=== PATIENT | female | born 1980 | race Caucasian/White ===

== ENCOUNTER 2017-08-10 11:32 | Emergency (ER) | payer BC, MEDICAID ==
[2017-08-10 11:53] VITALS: BP 119/78
--- NOTE | 2017-08-10 11:56 | EDM.PDOC ---
ED HPI GENERAL MEDICAL PROBLEM - General Chief Complaint: GASOLINE DRAGLINE OPERATOR Problem Stated Complaint: SPOTTING AND CRAMPING WITH Time Seen by Provider: 08/10/17 11:45 Source of Information: Reports: Patient History Limitations: Reports: No Limitations - History of Present Illness INITIAL COMMENTS - FREE TEXT/NARRATIVE: HISTORY AND PHYSICAL: History of present illness: Patient is a 36 ear old female who presents to the emergency room today with complaints of abdominal cramping and vaginal bleeding since 5 AM this morning. She is approximately 12 weeks with her last menstrual period being May 17, 2017. Reports that this morning at 5 AM she noticed some pelvic cramping, went to the bathroom approximately an hour later and noticed some spotting on the toilet paper tissue. Denies any chest pain, shortness of breath , nausea, vomiting, diarrhea, fever or chills. Reports she has had regular bowel movements. Denies any dysuria. Denies any recent sexual activity in the last couple days. : 9, para: 5 Dr. Grayson is her primary GASOLINE DRAGLINE OPERATOR. She has had a confirmed IUP. Review of systems: As per history of present illness and below otherwise all systems reviewed and negative. Past medical history: As per history of present illness and as reviewed below otherwise noncontributory. Surgical history: As per history of present illness and as reviewed below otherwise noncontributory. Social history: No reported history of drug or alcohol abuse. Family history: As per history of present illness and as reviewed below otherwise noncontributory. Physical exam: Gen.: Tamika is a 36-year-old female, nontoxic-appearing, well-developed and well-nourished, alert and oriented. Appears to be in no acute distress. HEENT: Atraumatic, normocephalic, pupils reactive, negative for conjunctival pallor or scleral icterus, mucous membranes moist, throat clear, neck supple, nontender, trachea midline. Lungs: Clear to auscultation, breath sounds equal bilaterally, chest nontender. Heart: S1S2, regular rate and rhythm. Abdomen: Soft, nondistended, nontender. Negative for masses or hepatosplenomegaly. Negative for costovertebral tenderness. Pelvis: Stable nontender. Genitourinary: Deferred. Rectal: Deferred. Extremities: Atraumatic, negative for cords or calf pain. Neurovascular unremarkable. Neuro: Awake, alert, oriented. Cranial nerves II through XII unremarkable. Cerebellum unremarkable. Motor and sensory unremarkable throughout. Exam nonfocal. Offered patient some pain/nausea medication. She states she is comfortable at this time and declines. She is aware of the labs and ultrasound that will take place, she is agreeable. Vital signs are stable. Ultrasound shows a single IUP measuring 12 weeks and 2 days. Very small subchorionic hemorrhage. We discussed strict pelvic rest and diligent follow-up with her GASOLINE DRAGLINE OPERATOR. Patient voices understanding and is agreeable to plan of care. I will treat her UTI with Augmentin 500 mg 1 tab twice a day 10 days. Diagnostics: CBC, CMP, AB/SIMON, OB ultrasound Therapeutics: [] Impression: Threatened miscarriage Plan: 1. Strict pelvic rest until cleared by her GASOLINE DRAGLINE OPERATOR. 2. May use Tylenol for pain management. 3. Please take Augmentin 1 tab twice a day 10 days for UTI. Drink plenty of fluids. Urine culture was added onto her urine today. If you receive a call from the hospital it's to change the antibiotic based on those culture results. 4. Follow-up with your GASOLINE DRAGLINE OPERATOR in the next 1-2 days. Return to the ED as needed and as discussed. Definitive disposition and diagnosis as appropriate pending reevaluation and review of above. Onset: Today Duration: Hour(s): Location: Reports: Abdomen - Related Data Allergies Allergy/AdvReac Type Severity Reaction Status Date / Time acetaminophen [From Percocet] Allergy Jaundice Verified 08/10/17 11:44 oxycodone HCl [From Percocet] Allergy Jaundice Verified 08/10/17 11:44 Home Meds: Home Meds Vits #93/Iron Fum/FA [ Formula Tablet] 1 tab PO DAILY 08/10/17 [History] Past Medical History - Past Health History Medical/Surgical History: Denies Medical/Surgical History HEENT History: Reports: None Cardiovascular History: Reports: None Respiratory History: Reports: None Gastrointestinal History: Reports: None Genitourinary History: Reports: None GASOLINE DRAGLINE OPERATOR History: Reports: None Musculoskeletal History: Reports: None Neurological History: Reports: None Psychiatric History: Reports: None Endocrine/Metabolic History: Reports: None Hematologic History: Reports: None Immunologic History: Reports: None Oncologic (Cancer) History: Reports: None Dermatologic History: Reports: None - Infectious Disease History Infectious Disease History: Reports: None - Past Surgical History Musculoskeletal Surgical History: Reports: Shoulder Surgery Social & Family History - Family History Family Medical History: Noncontributory HEENT: Reports: None Cardiac: Reports: None Respiratory: Reports: None GI: Reports: None - Tobacco Use Smoking Status *Q: Current Every Day Smoker Years of Tobacco use: 15 Packs/Tins Daily: 0.5 Used Tobacco, but Quit: No Second Hand Smoke Exposure: No - Alcohol Use Days Per Week of Alcohol Use: 2 Number of Drinks Per Day: 2 Total Drinks Per Week: 4 - Recreational Drug Use Recreational Drug Use: No ED ROS GENERAL - Review of Systems Review Of Systems: ROS reveals no pertinent complaints other than HPI. ED EXAM - Physical Exam Exam: See Below (See dictation) Course - Vital Signs Last Recorded V/S: Last Vital Signs Temp 36.8 C 08/10/17 11:47 Pulse 105 H 08/10/17 11:47 Resp 16 08/10/17 11:47 BP 119/78 08/10/17 11:47 Pulse Ox 99 08/10/17 11:47 - Orders/Labs/Meds Orders: Active Orders 24 hr Category Date Time Status OB Ltd 1 or More Fetus [US] Stat Exams 08/10/17 11:46 Taken CULTURE URINE [RM] Stat Lab 08/10/17 13:20 Uncollected Labs: Laboratory Tests 08/10/17 08/10/17 08/10/17 Range/Units 12:10 12:10 12:10 WBC 9.25 (4.0-11.0) K/uL RBC 4.09 L (4.30-5.90) M/uL Hgb 13.9 (12.0-16.0) g/dL Hct 39.5 (36.0-46.0) % MCV 96.6 (80.0-98.0) fL MCH 34.0 H (27.0-32.0) pg MCHC 35.2 (31.0-37.0) g/dL RDW Std Deviation 46.9 (28.0-62.0) fl RDW Coeff of Maurilio 13 (11.0-15.0) % Plt Count 332 (150-400) K/uL MPV 9.20 (7.40-12.00) fL Neut % (Auto) 63.4 (48.0-80.0) % Lymph % (Auto) 24.4 (16.0-40.0) % [place] % (Auto) 7.1 (0.0-15.0) % Eos % (Auto) 4.9 (0.0-7.0) % Baso % (Auto) 0.2 (0.0-1.5) % Neut # (Auto) 5.9 H (1.4-5.7) K/uL Lymph # (Auto) 2.3 (0.6-2.4) K/uL [place] # (Auto) 0.7 (0.0-0.8) K/uL Eos # (Auto) 0.5 (0.0-0.7) K/uL Baso # (Auto) 0.0 (0.0-0.1) K/uL Nucleated RBC % 0.0 /100WBC Nucleated RBCs # 0 K/uL Sodium 135 L (136-146) mmol/L Potassium 3.7 (3.5-5.1) mmol/L Chloride 107 (98-110) mmol/L Carbon Dioxide 19 L (21-31) mmol/L BUN 6 (6.0-23.0) mg/dL Creatinine 0.6 (0.6-1.5) mg/dL Est Cr Clr Drug Dosing 118.99 mL/min Estimated GFR (MDRD) > 60.0 ml/min Glucose 107 (60-110) mg/dL Calcium 10.0 (8.8-10.8) mg/dL Total Bilirubin 0.5 (0.1-1.5) mg/dL AST 18 (5-40) IU/L ALT 25 (8-54) IU/L Alkaline Phosphatase 72 (40-150) Total Protein 7.6 (6.0-8.0) g/dL Albumin 4.1 (3.5-5.0) g/dL Globulin 3.5 (2.0-3.5) g/dL Albumin/Globulin Ratio 1.2 L (1.3-2.8) HCG, Quant 79777.0 mIU/mL Urine Color Urine Appearance Urine pH (5.0-8.0) Ur Specific [place] (1.001-1.035) Urine Protein (NEGATIVE) mg/dL Urine Glucose (UA) (NEGATIVE) mg/dL Urine Ketones (NEGATIVE) mg/dL Urine Occult Blood (NEGATIVE) Urine Nitrite (NEGATIVE) Urine Bilirubin (NEGATIVE) Urine Urobilinogen (<2.0) EU/dL Ur Leukocyte Esterase (NEGATIVE) Urine RBC (0-2/HPF) Urine WBC (0-5/HPF) Ur Epithelial Cells (NONE-FEW) Urine Bacteria (NEGATIVE) Blood Type A POSITIVE 08/10/17 Range/Units 12:38 WBC (4.0-11.0) K/uL RBC (4.30-5.90) M/uL Hgb (12.0-16.0) g/dL Hct (36.0-46.0) % MCV (80.0-98.0) fL MCH (27.0-32.0) pg MCHC (31.0-37.0) g/dL RDW Std Deviation (28.0-62.0) fl RDW Coeff of Maurilio (11.0-15.0) % Plt Count (150-400) K/uL MPV (7.40-12.00) fL Neut % (Auto) (48.0-80.0) % Lymph % (Auto) (16.0-40.0) % [place] % (Auto) (0.0-15.0) % Eos % (Auto) (0.0-7.0) % Baso % (Auto) (0.0-1.5) % Neut # (Auto) (1.4-5.7) K/uL Lymph # (Auto) (0.6-2.4) K/uL [place] # (Auto) (0.0-0.8) K/uL Eos # (Auto) (0.0-0.7) K/uL Baso # (Auto) (0.0-0.1) K/uL Nucleated RBC % /100WBC Nucleated RBCs # K/uL Sodium (136-146) mmol/L Potassium (3.5-5.1) mmol/L Chloride (98-110) mmol/L Carbon Dioxide (21-31) mmol/L BUN (6.0-23.0) mg/dL Creatinine (0.6-1.5) mg/dL Est Cr Clr Drug Dosing mL/min Estimated GFR (MDRD) ml/min Glucose (60-110) mg/dL Calcium (8.8-10.8) mg/dL Total Bilirubin (0.1-1.5) mg/dL AST (5-40) IU/L ALT (8-54) IU/L Alkaline Phosphatase (40-150) Total Protein (6.0-8.0) g/dL Albumin (3.5-5.0) g/dL Globulin (2.0-3.5) g/dL Albumin/Globulin Ratio (1.3-2.8) HCG, Quant mIU/mL Urine Color YELLOW Urine Appearance CLEAR Urine pH 6.0 (5.0-8.0) Ur Specific [place] <= 1.005 (1.001-1.035) Urine Protein NEGATIVE (NEGATIVE) mg/dL Urine Glucose (UA) NEGATIVE (NEGATIVE) mg/dL Urine Ketones NEGATIVE (NEGATIVE) mg/dL Urine Occult Blood LARGE H (NEGATIVE) Urine Nitrite NEGATIVE (NEGATIVE) Urine Bilirubin NEGATIVE (NEGATIVE) Urine Urobilinogen 0.2 (<2.0) EU/dL Ur Leukocyte Esterase SMALL (NEGATIVE) Urine RBC 4-6 (0-2/HPF) Urine WBC 8-10 (0-5/HPF) Ur Epithelial Cells FEW (NONE-FEW) Urine Bacteria FEW (NEGATIVE) Blood Type Departure - Departure Time of Disposition: 13:29 Disposition: Home, Self-Care 01 Clinical Impression: Threatened , First trimester - Discharge Information Referrals: Booker Lewis MD [Primary Care Provider] - Forms: ED Department Discharge Additional Instructions: My general discharge The following information is given to patients seen in the emergency department who are being discharged to home. This information is to outline your options for follow-up care. We provide all patients seen in our emergency department with a follow-up referral. The need for follow-up, as well as the timing and circumstances, are variable depending upon the specifics of your emergency department visit. If you don't have a primary care physician on staff, we will provide you with a referral. We always advise you to contact your personal physician following an emergency department visit to inform them of the circumstance of the visit and for follow-up with them and/or the need for any referrals to a consulting specialist. The emergency department will also refer you to a specialist when appropriate. This referral assures that you have the opportunity for follow-up care with a specialist. All of these measure are taken in an effort to provide you with optimal care, which includes your follow-up. Under all circumstances we always encourage you to contact your private physician who remains a resource for coordinating your care. When calling for follow-up care, please make the office aware that this follow-up is from your recent emergency room visit. If for any reason you are refused follow-up, please contact the [facility] Emergency Department at and asked to speak to the emergency department charge nurse. [facility] [address] [place] [id number] 1. Strict pelvic rest until cleared by her GASOLINE DRAGLINE OPERATOR. 2. May use Tylenol for pain management. 3. Please take Augmentin 1 tab twice a day 10 days for UTI. Drink plenty of fluids. Urine culture was added onto her urine today. If you receive a call from the hospital it's to change the antibiotic based on those culture results. 4. Follow-up with your GASOLINE DRAGLINE OPERATOR in the next 1-2 days. Return to the ED as needed and as discussed. - My Orders Last 24 Hours: My Active Orders 08/10/17 11:46 OB Ltd 1 or More Fetus [US] Stat 08/10/17 13:20 CULTURE URINE [RM] Stat - Assessment/Plan Last 24 Hours: My Active Orders 08/10/17 11:46 OB Ltd 1 or More Fetus [US] Stat 08/10/17 13:20 CULTURE URINE [RM] Stat
[2017-08-10 12:44] LABS: CHLORIDE,CL 107 mmol/L (98-110); SODIUM,NA 135 mmol/L (136-146)
--- NOTE | 2017-08-12 11:11 | US ---
EXAM DATE: 08/10/17 PATIENT'S AGE: 36 Patient: FAUSTO MCGOWAN Facility: [place], [place] Site . Site : [id number] Study: US OB Pelvis [id number]/10/2017 1:05:58 PM Ordering Physician: Doctor Morris Final Report: HISTORY: Spotting. Early . Clinically date 12 weeks 1 day gestation. Comparison: None. Findings: Single living intrauterine fetus with crown-rump length mean of 5.6 cm corresponding to 12 weeks 2 days gestation. heart rate 153 beats per minute. movement. Posterior right lateral placenta. Two very small hypoechoic area is along the gestational sac left lateral measuring approximately 1.0 x 0.6 cm and in the cervical os measuring approximately 0.8 x 0.5 cm. The ovaries have a normal appearance. Impression: 1. Single living intrauterine fetus measuring 12 weeks 2 days gestation with an ultrasound EDC of 02/20/2018. This correlates with clinical dating. 2 Possible very small subchorionic hemorrhage. Dictated by Carlee Grajeda MD @ Aug 10 2017 1:19PM (Electronic Signature) Report Signed by Proxy. EMERALD
== END 2017-08-10 13:40 | disposition home or self-care (01) ==
LOC: MW.ED 11:32
DX: O20.0 Threatened abortion (principal); O99.331 Smoking (tobacco) complicating pregnancy, first trimester; F17.210 Nicotine dependence, cigarettes, uncomplicated; Z3A.12 12 weeks gestation of pregnancy; Z88.6 Allergy status to analgesic agent; Z88.5 Allergy status to narcotic agent
CPT/HCPCS: 36415; 76815; 76815-26; 80053; 81001; 84702; 85025; 86900; 86901; 87086; 99284; 99284-25

== ENCOUNTER 2018-01-29 22:10 | Inpatient (IN) | payer BC, MEDICAID ==
[2018-01-30] MEDS ORDERED: Nalbuphine 10 MG/1 ML Vial IVPUSH PRN (00:41)
[2018-01-30] MEDS ORDERED: Lidocaine 1% 50 ML MDV INJECT PRN (00:41)
[2018-01-30] MEDS ORDERED: Carboprost Tromethamine 250 MCG/1 ML Amp IM PRN (00:41)
[2018-01-30] MEDS ORDERED: Sodium Chloride 0.9% 2.5 ML Syringe FLUSH PRN (00:41)
[2018-01-30] MEDS ORDERED: Methylergonovine 0.2 MG/1 ML Amp IM PRN (00:41)
[2018-01-30] MEDS ORDERED: Misoprostol 200 MCG Tab PO PRN (00:41)
[2018-01-30] MEDS ORDERED: Tranexamic Acid 1,000 MG in Sodium Chloride 0.9% 100 ML IV PRN (00:41)
[2018-01-30] MEDS ORDERED: Sodium Chloride 0.9% 10 ML Syringe FLUSH PRN (00:41)
[2018-01-30] MEDS ORDERED: Butorphanol 1 MG/ML SDV IVPUSH PRN (00:41)
[2018-01-30] MEDS ORDERED: Water For Irrigation,Sterile 1,000 ML Container IRR PRN (00:41)
[2018-01-30] MEDS ORDERED: Oxytocin/0.9 % Sodium Chloride 30 UNIT/500 ML BAG IV SCH ×2 (00:45→02:15)
[2018-01-30] MEDS ORDERED: Lactated Ringers 1,000 ML IV SCH (00:45)
[2018-01-30] MEDS ORDERED: Benzocaine/Menthol 20%-0.5% Spray 78 GM Cannister TOP PRN (07:30)
[2018-01-30] MEDS ORDERED: Aluminum Hydroxide/Magnesium Hydroxide/Simethicone Susp 30 ML Cup PO PRN (07:30)
[2018-01-30] MEDS ORDERED: Ibuprofen 400 MG Tab PO PRN (07:30)
[2018-01-30] MEDS ORDERED: Witch Hazel Medicated Pads 40/Jar TOP PRN (07:30)
[2018-01-30] MEDS ORDERED: Ondansetron 4 MG/2 ML SDV IVPUSH PRN (07:30)
[2018-01-30] MEDS ORDERED: Lanolin 100% Cream 7 GM Tube TOP PRN (07:30)
[2018-01-30] MEDS ORDERED: Acetaminophen 500 MG Tab PO PRN ×2 (07:30)
[2018-01-30] MEDS ORDERED: Ibuprofen 800 MG Tab PO PRN (07:30)
[2018-01-30] MEDS ORDERED: Bisacodyl 10 MG Supp RECTAL PRN (07:30)
[2018-01-30] MEDS ORDERED: Docusate Sodium 100 MG Cap PO PRN (07:30)
--- NOTE | 2018-01-30 09:06 | OR ---
SURGEON: Carlee Haskins M.D. DATE OF PROCEDURE: 01/30/2018 PREOP DIAGNOSES: 1. A 37-week intrauterine . 2. Spontaneous rupture of membranes. 3. Gestational diabetes, diet controlled. POSTOP DIAGNOSES: 1. A 37-week intrauterine . 2. Spontaneous rupture of membranes. 3. Gestational diabetes, diet controlled. PROCEDURE: Spontaneous vaginal delivery, intact perineum. ANESTHESIA: None. ESTIMATED BLOOD LOSS: 300 mL. FINDINGS: Viable male. score 9 at 1 minute, 9 at 5 minutes. Weight is pending. Spontaneous delivery, intact placenta, 3-vessel cord. DISPOSITION: to nursery, mom in LDRP. PROCEDURE IN DETAIL: Tamika is a 37-year-old, G9, P5, A3 at 37 weeks gestational age, who presented on the shear tender of 01/30/2018 with leakage of fluid since approximately 5 p.m. She is group B beta strep negative. She is found to be grossly ruptured. She was admitted, routine labs were drawn. IV hydration was initiated. She was found to be 2 cm, 50% effaced, -2 station. Therefore, she was monitored with no cervical change. Pitocin augmentation was initiated. She responded nicely to the labor throughout the shear tender hours. Shortly after 6 a.m., she quickly progressed from 6 cm to 8 to complete, with an urge to push. I was called for delivery. Upon my arrival, the patient was placed in modified dorsal lithotomy position. Prepped and draped in the usual aseptic manner. heart tones were in the 150s. She with the next 2 contractions was able to push to deliver 's head atraumatically, spontaneously, followed by anterior shoulder posterior shoulder, and remainder of the body without difficulty. There was a loose nuchal cord x1 reduced manually. The 's oropharynx and nares bulb suctioned. Cord clamped x2 and cut. was handed off to his mother and attending nursing staff at side. Cord arterial, cord venous, cord blood sampling was obtained. Light pressure was applied while the placenta was delivered spontaneously intact. Vigorous fundal and uterine massage then applied while 30 units Pitocin was delivered in 500 mL of IV fluid. Upon inspection of cervix, vaginal sidewalls, and perineum were found to be intact. The sponge count was correct. The patient tolerated the procedure well overall. She will remain in LDRP and infant in nursery. CHRISTEN / NATHAN /[id number]
--- NOTE | 2018-01-31 08:02 | PCM.PNPP ---
<Zulema Hernandez - Last Filed: 01/31/18 07:58> - General Info Date of Service: 01/31/18 Functional Status: Reports: Pain Controlled, Tolerating Diet, Ambulating, Urinating - Review of Systems General: Denies: Fever Pulmonary: Denies: Shortness of Breath, Pleuritic Chest Pain, Cough Cardiovascular: Denies: Chest Pain, Palpitations, Dyspnea on Exertion Gastrointestinal: Denies: Abdominal Pain Genitourinary: Denies: Dysuria - General Info Date of Service: 01/31/18 - Patient Data Vital Signs - Most Recent: Last Vital Signs Temp 36.9 C 01/30/18 19:41 Pulse 88 01/30/18 19:41 Resp 18 01/30/18 19:41 BP 116/66 01/30/18 19:41 Pulse Ox 97 01/30/18 19:41 Weight - Most Recent: 163 lb Lab Results - Last 24 Hours: Laboratory Results - last 24 hr 01/30/18 01/31/18 Range/Units 07:13 04:45 Hgb 11.2 L (12.0-16.0) g/dL Hct 33.2 L (36.0-46.0) % Cord ABG pH 7.360 (7.18-7.38) Cord ABG Base Excess -2 (-10--2) Cord VBG pH 7.401 (7.25-7.45) Cord VBG Base Excess -3 (-10--2) Med Orders - Current: Current Medications Acetaminophen (Tylenol Extra Strength) 500 mg PO Q4H PRN PRN Reason: Pain Acetaminophen (Tylenol Extra Strength) 1,000 mg PO Q4H PRN PRN Reason: Pain Al Hydroxide/Mg Hydroxide (Mag-Al Plus) 30 ml PO Q8H PRN PRN Reason: Heartburn Benzocaine/Menthol (Dermoplast Pain Relief 20%-0.5% [place]) 78 gm TOP ASDIRECTED PRN PRN Reason: Perineal Comfort Measure Bisacodyl (Dulcolax) 10 mg RECTAL .ONCE PRN PRN Reason: Constipation Carboprost Tromethamine (Hemabate Ds) 250 mcg IM ASDIRECTED PRN PRN Reason: Post Hemorrhage Docusate Sodium (Colace) 100 mg PO BID PRN PRN Reason: Constipation Emollient Ointment (Lansinoh Hpa) 0 gm TOP ASDIRECTED PRN PRN Reason: Sore Nipples Tranexamic Acid 1,000 mg/ (Sodium Chloride) 110 mls @ 660 mls/hr IV ONETIME PRN PRN Reason: Bleeding Lactated Ringer's (Ringers, Lactated) 1,000 mls @ 150 mls/hr IV ASDIRECTED ADENIKE Last Admin: 01/30/18 02:29 Dose: 150 mls/hr Oxytocin/Sodium Chloride (Oxytocin 30 Unit/500 Ml-Ns) 30 unit in 500 mls @ 2 mls/hr IV TITRATE ADENIKE Oxytocin/Sodium Chloride (Oxytocin 30 Unit/500 Ml-Ns) 30 unit in 500 mls @ 2 mls/hr IV TITRATE ADENIKE; Protocol Last Infusion: 01/30/18 05:59 Dose: 12 munits/min, 12 mls/hr Ibuprofen (Motrin) 400 mg PO Q4H PRN PRN Reason: Pain Ibuprofen (Motrin) 800 mg PO Q6H PRN PRN Reason: Pain Methylergonovine Maleate (Methergine) 0.2 mg IM ASDIRECTED PRN PRN Reason: Post Hemorrhage Misoprostol (Cytotec) 200 mcg PO .ONCE PRN PRN Reason: Post Hemorrhage Ondansetron HCl (Zofran) 4 mg IVPUSH Q6H PRN PRN Reason: Nausea/Vomiting Sodium Chloride (Saline Flush) 10 ml FLUSH ASDIRECTED PRN PRN Reason: Keep Vein Open Sodium Chloride (Saline Flush) 2.5 ml FLUSH ASDIRECTED PRN PRN Reason: Keep Vein Open Sterile Water (Sterile Water For Irrigation) 1,000 ml IRR ASDIRECTED PRN PRN Reason: delivery Witch Marie (Tucks) 1 pad TOP ASDIRECTED PRN PRN Reason: comfort care Discontinued Medications Butorphanol Tartrate (Stadol) 1 mg IVPUSH Q1H PRN PRN Reason: Pain Lidocaine HCl (Xylocaine 1%) 50 ml INJECT .ONCE PRN PRN Reason: Laceration repair Nalbuphine HCl (Nubain) 10 mg IVPUSH Q1H PRN PRN Reason: Pain (severe 7-10) - Interaction Disposition, : to Nursery Feeding: Attempted ; Nursed Fair/Poor (Pumping - patient is NPO), Other (see below) Support Person: Significant Other - Recovery Exam Fundal Tone: Firm Fundal Level: At Umbilicus Fundal Placement: Midline Lochia Amount: Scant Lochia Color: Rubra/Red Perineum Description: Intact, Minimal Bruising/Swelling Episiotomy/Laceration: None Bladder Status: Voiding Urinary Elimination: Voided - Exam General: Alert, Oriented Neck: Supple Lungs: Clear to Auscultation, Normal Respiratory Effort Cardiovascular: Regular Rate, Regular Rhythm GI/Abdominal Exam: Normal Bowel Sounds, Soft, Non-Tender, No Distention Extremities: Normal Inspection, Normal Capillary Refill, Pedal Edema (trace) Skin: Warm, Dry, Intact - Problem List & Annotations (1) Vaginal delivery SNOMED Code(s): 629564231 Code(s): O80 - ENCOUNTER FOR FULL-TERM UNCOMPLICATED DELIVERY Status: Acute Current Visit: Yes - Assessment Assessment:: PPD#1 from . Minimal pain and lochia. Encouraged patient to start pumping as baby is NPO due to transient tachypnea. Anticipate discharge home tomorrow. - Plan Plan:: Continue routine cares. Aim for discharge home tomorrow. <AdCodie luna - Last Filed: 01/31/18 09:49> - Patient Data Vital Signs - Most Recent: Last Vital Signs Temp 36.2 C 01/31/18 09:33 Pulse 72 01/31/18 09:33 Resp 20 01/31/18 09:33 BP 110/69 01/31/18 09:33 Pulse Ox 97 01/31/18 09:33 Lab Results - Last 24 Hours: Laboratory Results - last 24 hr 01/31/18 Range/Units 04:45 Hgb 11.2 L (12.0-16.0) g/dL Hct 33.2 L (36.0-46.0) % Med Orders - Current: Current Medications Acetaminophen (Tylenol Extra Strength) 500 mg PO Q4H PRN PRN Reason: Pain Acetaminophen (Tylenol Extra Strength) 1,000 mg PO Q4H PRN PRN Reason: Pain Al Hydroxide/Mg Hydroxide (Mag-Al Plus) 30 ml PO Q8H PRN PRN Reason: Heartburn Benzocaine/Menthol (Dermoplast Pain Relief 20%-0.5% [place]) 78 gm TOP ASDIRECTED PRN PRN Reason: Perineal Comfort Measure Bisacodyl (Dulcolax) 10 mg RECTAL .ONCE PRN PRN Reason: Constipation Carboprost Tromethamine (Hemabate Ds) 250 mcg IM ASDIRECTED PRN PRN Reason: Post Hemorrhage Docusate Sodium (Colace) 100 mg PO BID PRN PRN Reason: Constipation Emollient Ointment (Lansinoh Hpa) 0 gm TOP ASDIRECTED PRN PRN Reason: Sore Nipples Tranexamic Acid 1,000 mg/ (Sodium Chloride) 110 mls @ 660 mls/hr IV ONETIME PRN PRN Reason: Bleeding Lactated Ringer's (Ringers, Lactated) 1,000 mls @ 150 mls/hr IV ASDIRECTED ADENIKE Last Admin: 01/30/18 02:29 Dose: 150 mls/hr Oxytocin/Sodium Chloride (Oxytocin 30 Unit/500 Ml-Ns) 30 unit in 500 mls @ 2 mls/hr IV TITRATE ADENIKE Oxytocin/Sodium Chloride (Oxytocin 30 Unit/500 Ml-Ns) 30 unit in 500 mls @ 2 mls/hr IV TITRATE ADENIKE; Protocol Last Infusion: 01/30/18 05:59 Dose: 12 munits/min, 12 mls/hr Ibuprofen (Motrin) 400 mg PO Q4H PRN PRN Reason: Pain Ibuprofen (Motrin) 800 mg PO Q6H PRN PRN Reason: Pain Methylergonovine Maleate (Methergine) 0.2 mg IM ASDIRECTED PRN PRN Reason: Post Hemorrhage Misoprostol (Cytotec) 200 mcg PO .ONCE PRN PRN Reason: Post Hemorrhage Ondansetron HCl (Zofran) 4 mg IVPUSH Q6H PRN PRN Reason: Nausea/Vomiting Sodium Chloride (Saline Flush) 10 ml FLUSH ASDIRECTED PRN PRN Reason: Keep Vein Open Sodium Chloride (Saline Flush) 2.5 ml FLUSH ASDIRECTED PRN PRN Reason: Keep Vein Open Sterile Water (Sterile Water For Irrigation) 1,000 ml IRR ASDIRECTED PRN PRN Reason: delivery Witch Marie (Tucks) 1 pad TOP ASDIRECTED PRN PRN Reason: comfort care Discontinued Medications Butorphanol Tartrate (Stadol) 1 mg IVPUSH Q1H PRN PRN Reason: Pain Lidocaine HCl (Xylocaine 1%) 50 ml INJECT .ONCE PRN PRN Reason: Laceration repair Nalbuphine HCl (Nubain) 10 mg IVPUSH Q1H PRN PRN Reason: Pain (severe 7-10) - Problem List & Annotations (1) Vaginal delivery SNOMED Code(s): 871045150 Code(s): O80 - ENCOUNTER FOR FULL-TERM UNCOMPLICATED DELIVERY Status: Acute Current Visit: Yes - Problem List Review Problem List Initiated/Reviewed/Updated: Yes - Assessment Assessment:: Reviewed independently and agree with above - Plan Plan:: Aim discharge tomorrow due as baby kept for observation due to TTN
[2018-01-31 09:34] VITALS: BP 110/69
--- NOTE | 2018-01-31 18:23 | PCM.SN ---
- Free Text/Narrative Note: Patient would like to be discharged home this evening since baby would be staying in for a course of antibiotics for suspected pneumonia. She plans to visit daily. She has no concerns. Lochia is minimal and denies any pain, fever or chills Discharge instructions reviewed: Nothing in the vagina for 6 weeks Encouraged to continue to pump Bleeding and infection precautions reviewed May use OTC pain meds PRN Follow up in the clinic in 6 weeks
== END 2018-01-31 19:00 | disposition home or self-care (01) | DRG 560 ==
LOC: MW.OBCHECK 22:10 → MW.OB 22:14 → MW.OBCHECK 22:52 → MW.OB 22:53 → OBSVTOIN 01-30 07:13 → MW.OB 01-30 14:52
PROVIDERS: ADMIT Obstetrics & Gynecology; ATTEND Obstetrics & Gynecology
PROC: 10E0XZZ Delivery of Products of Conception, External Approach (ICD-10-PCS; principal; 2018-01-30)
PROC: 3E033VJ Introduction of Other Hormone into Peripheral Vein, Percutaneous Approach (ICD-10-PCS; 2018-01-30)
DX: O42.02 Full-term premature rupture of membranes, onset of labor within 24 hours of rupture (principal); O24.420 Gestational diabetes mellitus in childbirth, diet controlled; Z3A.37 37 weeks gestation of pregnancy; Z37.0 Single live birth
CPT/HCPCS: 36415; 59025; 59409; 82803; 82962; 84112; 85014; 85018; 85027; 86850; 86900; 86901; J2590; J7120

== ENCOUNTER 2021-11-09 13:13 | Emergency (ER) | payer BC, MEDICAID ==
[2021-11-09 14:21] LABS: CORONAVIRUS COVID-19 NAA NEGATIVE (NEGATIVE); INFLUENZA A NAA NEGATIVE (NEGATIVE); INFLUENZA B NAA NEGATIVE (NEGATIVE)
[2021-11-09 14:38] VITALS: BP 118/64; PULSE 95
== END 2021-11-09 14:38 | disposition home or self-care (01) ==
LOC: MW.ED 13:13
DX: B34.9 Viral infection, unspecified (principal); Z20.822 Contact with and (suspected) exposure to COVID-19; Z88.8 Allergy status to other drugs, medicaments and biological substances; Z72.0 Tobacco use
CPT/HCPCS: 0240U; 99283

== ENCOUNTER 2022-09-02 06:21 | Emergency (ER) | payer MEDICAID ==
[2022-09-02] MEDS ORDERED: Ketorolac 30 MG/ML SDV IM STA (06:39)
[2022-09-02 07:16] LABS: CORONAVIRUS COVID-19 NAA NEGATIVE (NEGATIVE); INFLUENZA A NAA NEGATIVE (NEGATIVE); INFLUENZA B NAA NEGATIVE (NEGATIVE); RESPIRATORY SYNCYTIAL VIR NAA NEGATIVE (NEGATIVE)
[2022-09-02 07:44] VITALS: BP 108/64; PULSE 86
== END 2022-09-02 07:44 | disposition home or self-care (01) ==
LOC: MW.ED 06:21
DX: J02.9 Acute pharyngitis, unspecified (principal); Z88.6 Allergy status to analgesic agent; Z88.5 Allergy status to narcotic agent; Z90.49 Acquired absence of other specified parts of digestive tract; Z20.822 Contact with and (suspected) exposure to COVID-19
CPT/HCPCS: 0241U; 87651; 96372; 99283; J1885

== ENCOUNTER 2023-04-14 14:11 | Emergency (ER) | payer MEDICAID ==
[2023-04-14 15:05] VITALS: BP 130/84; PULSE 91
[2023-04-14] MEDS ORDERED: Diazepam 5 MG Tab PO ONE (15:31)
[2023-04-14] MEDS ORDERED: Ondansetron 4 MG Tab.DIS PO ONE (15:32)
== END 2023-04-14 16:57 | disposition home or self-care (01) ==
LOC: MW.ED 14:11
DX: S82.092A Other fracture of left patella, initial encounter for closed fracture (principal); Z88.5 Allergy status to narcotic agent; Z88.8 Allergy status to other drugs, medicaments and biological substances; X50.1XXA Overexertion from prolonged static or awkward postures, initial encounter; W19.XXXA Unspecified fall, initial encounter
CPT/HCPCS: 73562; 99283; A9270